=== PATIENT | female | born 1995 | race Caucasian/White ===

== ENCOUNTER → 2016-12-15 | Outpatient (CLI) | payer BC ==
--- NOTE | 2016-12-17 15:12 | EKG REPORT ---
SEVERITY:- NORMAL ECG - SINUS RHYTHM : Confirmed by: Tello Roger MD 17-Dec-2016 15:11:56
--- NOTE | 2016-12-18 11:17 | [facility] ---
[facility] NAME: CINDY ZIMMERMAN [facility] REFERENCE #: [id number] : 1995 DATE OF VISIT: 12/15/2016 PRIMARY CARE PHYSICIAN: Edgar Molina MD CHIEF COMPLAINT: Follow up orthostatic intolerance and presyncope. I last saw this young woman over two years ago. She is seen with her mother today at our [facility] in followup of her lightheaded spells and her chest pains and her symptoms of orthostatic intolerance. They state that she had done great over the last two years. She weaned herself off of her Florinef and atenolol because her symptoms of lightheadedness and chest pain and feeling panicky had all gone away. Even her headaches had gone away and she had come off her Topamax. She was exercising a lot and doing really well. Now, over the last two months, she is starting to feel dizzy again. When she does her treadmill, she feels that she gets a tunnel vision and her hearing starts to go out so she is worried she is having presyncope. She notes that she quit exercising for about a year because she was in [employer] school and her symptoms were gradually coming back. She attributes her resolution of orthostatic intolerance symptoms to having gone through a phase where she was extremely fit and exercising regularly. She hydrates well. She has not had full fainting. MEDICATIONS: control pills. ALLERGIES TO MEDICATION: SEASONIQUE CONTROL. SOCIAL HISTORY: Lives with mother and father. No smokers. The patient does not smoke. PAST MEDICAL HISTORY: See HPI. Has had rhinoplasty and ankle reconstruction surgically. SYSTEM REVIEW: Negative for weight loss, vision problems, hearing problems, wheezing or coughing, GI symptoms, urinary complaint, musculoskeletal pains, headaches, seizures. Her last menstrual period was 11/25. FAMILY MEDICAL HISTORY: Mother, age 48, has just had a pacemaker put in for symptomatic bradycardia. Paternal grandfather has been evaluated for transplant evaluation for left ventricular ejection fraction of 10%. He is age 70 but they think he may have primary cardiomyopathy. His brother at age 70 of a cardiomyopathy. There are individuals with high blood pressure. No young sudden deaths. PHYSICAL EXAM: Weight one hundred and twenty three pounds, height sixty five inches. Blood pressure 114/71. Heart rate eighty four. General: This is a fit, very well appearing young woman. Color and perfusion are excellent. No conjunctival or oral pallor. Thyroid not enlarged or nodular. Lungs: Clear bilateral. Precordial activity normal. Cardiac auscultation reveals no abnormal murmur, click, or gallop. Abdomen: Without hepatomegaly or splenomegaly. Femoral pulses normal. Gait and coordination normal. A 12-lead electrocardiogram is very normal. IMPRESSION: SHE HAS HAD THE RETURN OF POSTURAL LIGHTHEADEDNESS AND ORTHOSTATIC INTOLERANCE. PLAN: To add Florinef 0.1 mg daily to good hydration and exercise and see how she does. She is to call me if she does not do well. Scheduled to see me back in two months for a checkup on her. Got an orthostatic intolerance information sheet. RHONDA MENDOZA MD [id number] PHY#: [id number] ID: [id number] JOB#: [id number] ACCT: [id number] cc:MD EDGAR BUSTAMANTE M.D. >
== END ==
LOC: PC 10:05
PROVIDERS: ATTEND Pediatrics Pediatric Cardiology
DX: I95.1 Orthostatic hypotension (principal)
CPT/HCPCS: 93005; 93010

== ENCOUNTER → 2017-06-07 | Outpatient (CLI) | payer BC ==
--- NOTE | 2017-06-07 09:51 | RADIOLOGY REPORT (SQ) ---
EXAM DESCRIPTION: U/S NON-OB PELVIS TV W/O DOP COMPLETED DATE/TIME: 06/07/2017 9:21 am REASON FOR STUDY: RLQ PAIN(R10.31) R10.31 RIGHT LOWER QUADRANT PAIN R10.11 RIGHT UPPER QUADRANT PA IN R10.13 EPIGASTRIC PAIN COMPARISON: Pelvic ultrasound 07/03/2013 TECHNIQUE: Dynamic and static grayscale images acquired of the pelvis via transvaginal approach and recorded on PACS. Additional selected color Doppler and spectral images recorded. LIMITATIONS: None. FINDINGS: UTERUS: Contour normal. No mass. Uterus is 7 x 4 x 3 cm in size. ENDOMETRIAL STRIPE: No focal or generalized thickening. No masses. Endometrial stripe less than 2 mm in thickness CERVIX: No nabothian cysts. RIGHT OVARY: No abnormal masses. Right ovary is 2.5 x 1.8 x 1.7 cm in size RIGHT OVARY DOPPLER: Normal arterial vascular flow without evidence for torsion. LEFT OVARY: No abnormal masses. Left ovary is 2.2 x 2.2 x 1.3 cm in size LEFT OVARY DOPPLER: Normal arterial vascular flow without evidence for torsion. FREE FLUID: None noted. OTHER: No other significant finding. IMPRESSION: NORMAL TRANSVAGINAL PELVIC ULTRASOUND. TECHNICAL DOCUMENTATION: JOB ID: [id number] [employer]- All Rights Reserved
--- NOTE | 2017-06-07 09:52 | RADIOLOGY REPORT (SQ) ---
EXAM DESCRIPTION: U/S ABDOMEN LIMITED W/O DOP COMPLETED DATE/TIME: 06/07/2017 9:21 am REASON FOR STUDY: RUQ PAIN (R10.11) R10.31 RIGHT LOWER QUADRANT PAIN R10.11 RIGHT UPPER QUADRANT P AIN R10.13 EPIGASTRIC PAIN COMPARISON: CT abdomen pelvis 06/30/2013 TECHNIQUE: Dynamic and static grayscale images acquired of the abdomen and recorded on PACS. Additio nal selected color Doppler and spectral images recorded. LIMITATIONS: None. FINDINGS: PANCREAS: No masses. Visualized pancreatic duct normal caliber. LIVER: No masses. Echotexture normal. LIVER VASCULATURE: Normal directional flow of the main portal vein and hepatic veins. GALLBLADDER: No stones. Normal wall thickness. No pericholecystic fluid. ULTRASOUND-DETECTED SINGH'S SIGN: Negative. INTRAHEPATIC DUCTS AND COMMON DUCT: CBD and intrahepatic ducts normal caliber. No filling defects. INFERIOR VENA CAVA: Normal flow. AORTA: No aneurysm. RIGHT KIDNEY: Normal size. Normal echogenicity. No solid or suspicious masses. No hydronephrosis. No calcifications. PERITONEAL AND RIGHT PLEURAL SPACE: No ascites or effusions. OTHER: No other significant findings. IMPRESSION: NORMAL RIGHT UPPER QUADRANT ULTRASOUND. TECHNICAL DOCUMENTATION: JOB ID: [id number] [employer]- All Rights Reserved
== END ==
LOC: RAD 07:41
PROVIDERS: ATTEND Nurse Practitioner Primary Care
DX: R10.31 Right lower quadrant pain (principal); R10.11 Right upper quadrant pain; R10.13 Epigastric pain
CPT/HCPCS: 76705; 76830

== ENCOUNTER → 2018-10-14 | Day surgery (SDC) | payer BC ==
--- NOTE | 2018-10-14 14:19 | RADIOLOGY REPORT (SQ) ---
EXAM DESCRIPTION: MRI RT UPPER JOINT WITH COMPLETED DATE/TIME: 10/14/2018 1:55 pm REASON FOR STUDY: PAIN IN RIGHT SHOULDER (M25.511), SLAP LESION (S43.431A) S43.431A SUPERIOR GLENOI D LABRUM LESION OF RIGHT SHOULDER, I COMPARISON: None. TECHNIQUE: Right shoulder images acquired and stored on PACS. Oblique coronal, oblique sagittal, and axial imaging to include fat sensitive sequences as T1, water sensitive sequences as FST2/STIR, and contrast sensitive sequences as FST1. LIMITATIONS: None. FINDINGS: JOINT DISTENTION: Adequate distention for interpretation. BONE MARROW AND CORTEX: Tiny subcortical cyst posterior right humeral head at the greater tuberosity axial image 7. AC JOINT: Type II acromion. No significant AC joint arthropathy. GLENOHUMERAL JOINT: No subluxation or dislocation. No focal chondral defects or reactive bone changes . ROTATOR CUFF: Intact without significant tendinopathy, partial or full-thickness tears. No peritendin itis. LABRUM AND BICEPS LABRAL COMPLEX: Normal signal in the rotator interval without tear of the superior glenohumeral ligament. Superior labrum, intra-articular long head biceps intact. Distal biceps in no rmal anatomic location in bicipital groove. No paralabral cysts. INFERIOR LABRAL COMPLEX: Bony glenoid and labrum intact. IGHL intact without thickening or tear. No p aralabral cysts. ADJACENT SOFT TISSUES: No masses or nodes. OTHER: There is capsular laxity, with a prominent axillary recess. IMPRESSION: NORMAL MRI ARTHROGRAM OF THE SHOULDER. TECHNICAL DOCUMENTATION: JOB ID: [id number] [employer]- All Rights Reserved Reading location - IP/workstation name: [email or web address]
--- NOTE | 2018-10-14 14:22 | RADIOLOGY REPORT (SQ) ---
EXAM DESCRIPTION: FLUORO/NEEDLE PLACEMENT; ARTHRO SHOULDER INJECTION COMPLETED DATE/TIME: 10/14/2018 1:33 pm REASON FOR STUDY: PAIN IN RIGHT SHOULDER (M25.511), SLAP LESION (S43.431A) S43.431A SUPERIOR GLENOI D LABRUM LESION OF RIGHT SHOULDER, I COMPARISON: None. FLUOROSCOPY TIME: 4 seconds 1 digital fluoro image saved to PACS. LIMITATIONS: None. PROCEDURE: Procedure, risks, benefits and alternatives explained to patient who then gave written co nsent. The posterior right glenohumeral joint at the shoulder was marked and a time out was called fo r correct procedure verification. Posterior entry site marked using fluoroscopic guidance. Shoulder prepped and draped using sterile technique. Local anesthesia achieved using 7 mL of 1% lidocaine in jection. 22 gauge spinal needle introduced into the joint space under direct fluoroscopic visualizat ion. Non-ionic contrast instilled to confirm intra-articular position. Dilute gadolinium solution the n injected. Needle removed and entry site covered with sterile bandage. No immediate complications n oted. TECHNIQUE: Digital images acquired during fluoroscopy and stored on PACS. Patient immediately take n to the MR suite for additional imaging. INJECTION LOCATION: Right posterior glenohumeral joint CONTRAST TYPE AND AMOUNT: 1 mL of Isovue-300 was injected to confirm intra-articular needle placement , followed by 10 mL of Dotarem/Saline mixture. IMPRESSION: SUCCESSFUL NEEDLE PLACEMENT AND INJECTION FOR RIGHT SHOULDER MR ARTHROGRAM USING POSTERI OR APPROACH. COMMENT: Quality ID 145: Final reports for procedures using fluoroscopy that document radiation exp osure indices, or exposure time and number of fluorographic images (if radiation exposure indices are not available) TECHNICAL DOCUMENTATION: JOB ID: [id number] [employer]- All Rights Reserved Reading location - IP/workstation name: [email or web address]
--- NOTE | 2018-10-14 14:22 | RADIOLOGY REPORT (SQ) ---
EXAM DESCRIPTION: FLUORO/NEEDLE PLACEMENT; ARTHRO SHOULDER INJECTION COMPLETED DATE/TIME: 10/14/2018 1:33 pm REASON FOR STUDY: PAIN IN RIGHT SHOULDER (M25.511), SLAP LESION (S43.431A) S43.431A SUPERIOR GLENOI D LABRUM LESION OF RIGHT SHOULDER, I COMPARISON: None. FLUOROSCOPY TIME: 4 seconds 1 digital fluoro image saved to PACS. LIMITATIONS: None. PROCEDURE: Procedure, risks, benefits and alternatives explained to patient who then gave written co nsent. The posterior right glenohumeral joint at the shoulder was marked and a time out was called fo r correct procedure verification. Posterior entry site marked using fluoroscopic guidance. Shoulder prepped and draped using sterile technique. Local anesthesia achieved using 7 mL of 1% lidocaine in jection. 22 gauge spinal needle introduced into the joint space under direct fluoroscopic visualizat ion. Non-ionic contrast instilled to confirm intra-articular position. Dilute gadolinium solution the n injected. Needle removed and entry site covered with sterile bandage. No immediate complications n oted. TECHNIQUE: Digital images acquired during fluoroscopy and stored on PACS. Patient immediately take n to the MR suite for additional imaging. INJECTION LOCATION: Right posterior glenohumeral joint CONTRAST TYPE AND AMOUNT: 1 mL of Isovue-300 was injected to confirm intra-articular needle placement , followed by 10 mL of Dotarem/Saline mixture. IMPRESSION: SUCCESSFUL NEEDLE PLACEMENT AND INJECTION FOR RIGHT SHOULDER MR ARTHROGRAM USING POSTERI OR APPROACH. COMMENT: Quality ID 145: Final reports for procedures using fluoroscopy that document radiation exp osure indices, or exposure time and number of fluorographic images (if radiation exposure indices are not available) TECHNICAL DOCUMENTATION: JOB ID: [id number] [employer]- All Rights Reserved Reading location - IP/workstation name: [email or web address] [email or web address]
== END ==
LOC: RAD 12:05
PROVIDERS: ATTEND Physician Assistant
DX: S43.431A Superior glenoid labrum lesion of right shoulder, initial encounter (principal); X58.XXXA Exposure to other specified factors, initial encounter; M25.511 Pain in right shoulder
CPT/HCPCS: 73222; 77002; 23350; A9576